=== PATIENT | female | born 1950 | race Two or more races ===

== ENCOUNTER 2025-07-02 11:35 | Emergency (ER) | payer OTHER, SELFPAY ==
[2025-07-02 12:00] VITALS: BP 124/66; PULSE 81; RESP 20; TEMP 37; O2SAT 98; BMI 21.5
--- NOTE | 2025-07-02 12:00 | ED_ITS ---
HPI - General Adult General Chief complaint: Wound/Laceration Stated complaint: l middle finger laceration Time Seen by Provider: 07/02/25 14:18 Source: patient and other (patient's DEHYDRATING PRESS OPERATOR) Mode of arrival: ambulatory Limitations: no limitations History of Present Illness ED Provider: Allie Oakley PA-C HPI narrative: Patient is a 74 year old assigned female at with a history of Xarelto use presenting to the emergency department today with a left middle finger laceration. Patient states that she was opening a can when she cut her left middle finger. Patient denies any other complaints at this time. Related Data Previous Rx's ?Medication ?Instructions ?Recorded amoxicillin 875 mg-potassium 1 tab PO BID 5 days #10 t abs 07/02/25 clavulanate 125 mg tablet Allergies Allergy/AdvReac Type Severity Reaction Status Date / Time aspirin Allergy Rash Verified 07/02/25 12:03 Review of Systems 2 Constitutional: Constitutional: Reports as per HPI Eyes: Eyes: Reports as per HPI ENT: Reports as per HPI Cardiovascular: Cardiovascular: Reports as per HPI Respiratory: Respiratory: Reports as per HPI Gastrointestinal: Gastrointestinal: Reports as per HPI Genitourinary: Genitourinary: Reports as per HPI Musculoskeletal: Musculoskeletal: Reports as per HPI Integumentary/Breasts: Skin/Breast: Reports as per HPI Neurologic: Reports as per HPI Psychiatric: Psychiatric: Reports as per HPI Endocrine: Endocrine: Reports as per HPI Hematologic/Lymphatic: Hematologic/Lymphatic: Reports as per HPI Allergic/Immunologic: Allergic/Immunologic: Reports as per HPI [facility] Past Medical History Attestation statement: The following information was validated with the patient. (all information validated with the patient's DEHYDRATING PRESS OPERATOR) Source: old records reviewed, nursing notes reviewed and other (patient's DEHYDRATING PRESS OPERATOR provided additional history and confirmed the history provided by the patient. ) Social History Social History Advance Directives: No Advance Directives Information Provided: Yes Physical Exam ED Vital Signs: Vital Signs - 24 hr 07/02/25 12:00 07/02/25 15:07 Temperature 98.6 F 98.6 F Pulse Rate 81 81 Respiratory Rate 20 20 Blood Pressure 124/66 124/66 Pulse Oximetry 98 98 Oxygen Delivery Method Room Air Room Air BMI result Body Mass Index 21.5 Const General: cooperative, no acute distress, alert and awake Nutritional Appearance: well nourished Orientation/consciousness: patient oriented x3 HENMT Head: Yes normal to inspection and Yes atraumatic Ears: hearing grossly normal bilaterally and external ears normal General nose exam: Normal external nose present, no nasal discharge noted and no epistaxis Face and sinus: Yes normal facial exam, No abrasion and No laceration Mouth: Normal oral and palatal mucosa present, no drooling and no muffled voice Eyes General: appearance normal, both eyes and all related structures Periorbital: periorbital findings normal Eyelids: Yes eyelids normal Conjunctivae: conjunctivae normal Pupils: Equal, round and reactive pupils present EOM: EOMs intact bilaterally Neck Neck: Yes normal visual inspection and Yes full ROM Resp Effort & Inspection: normal respiratory effort and able to speak in complete sentences Neuro General: patient oriented x3, moves all extremities and CN's II-XI intact bilaterally Cranial nerves: Yes Equal, round and reactive pupils present Cognition (Neuro): normal cognition Extrem Other: General: Yes full ROM and Yes capillary refill normal Psych Appearance: grossly normal Mental Status: mental status grossly normal Affect: normal affect Attitude: cooperative Thought process: Normal thought process present Thought content: Normal thought content present Insight: Good insight present (Psych) Course Course Course Narrative: This is a rapid medical exam performed by Gatito Stone NP: Additional HPI, ROS, PE not included below will be deferred to primary provider. Patient is a 74 y/o F pmhx DM, on Xarelto presenting with laceration to left middle finger. Cut accidentally this morning while opening a can. Unsure last Tdap. Linear lac to distal tip of finger not actively bleeding. Plan: Tdap, sutures Medications Administered Discontinued Medications Generic Name Dose Route Start Last Admin Trade Name Freq PRN Reason Stop Dose Admin Diphtheria/Tetanus/Acell Pertussis 0.5 ml 07/02/25 12:03 07/02/25 14:48 Diphth,Pertus(Acell),Tet Adult 0.5 Ml Syringe IM 07/02/25 12:04 0.5 ml .ONCE ONE Administration Procedures Laceration Left middle finger: Site: other (middle finger) Side (If applicable): left Size (cm): 1.5 Description: linear Depth: simple, single layer Pre-repair: irrigated extensively and deep structures intact Skin layer closed with: other (dermabond) Size (cm): other (dermabond) Technique: other (dermabond) Medical Decision Making Medical Decision Making MDM Narrative: Patient is a 74 year old assigned female at with a history of Xarelto use presenting to the emergency department today with a left middle finger laceration. Patient's physical exam was as noted in the physical exam portion of this note. Patient has a superficial 1.5cm laceration to the left distal middle finger with no active bleeding. I explained my physical exam findings to the patient and the patient's DEHYDRATING PRESS OPERATOR. I answered all questions asked by the patient and the patient's DEHYDRATING PRESS OPERATOR. Patient's laceration was repaired, with dermabond, without incident. Patient's PMS was intact prior to and after dermabond placement. Patient's repaired wound was dressed with a non-stick and web roll gauze, without incident. Patient's PMS was intact prior to and after dressing placement. Patient was brought up to date with tetanus. Given the patient's mechanism of injury, prophylactic antibiotic prescribed. I stressed the importance of the patient taking her medication as directed (either prescribed or as the over the counter packaging recommends). I stressed the importance of the patient following up with her primary care provider. I stressed the importance of the patient returning to the emergency department immediately if her symptoms were to worsen or if she were to develop any dizziness, shortness of breath, difficulty breathing, chest pain, blurry vision, loss of vision, nausea, vomiting, abdominal pain, fever, chills, back pain, or any other complaints. Patient and the patient's DEHYDRATING PRESS OPERATOR verbalized agreement and understanding with this treatment plan and discharge. Differential Diagnosis Differential Diagnoses: The differential diagnosis associated with the presentation includes Finger laceration Finger abrasion Admission/Observation Consideration of admission/observation: Escalation of care including admission/observation considered Patient would have been admitted to the hospital had her clinical presentation warranted hospital admission. Independent Historian Clinical information obtained from an independent historian. History obtained from or confirmed by: Other (Patient's DEHYDRATING PRESS OPERATOR provided additional history and confirmed the history provided by the patient. ) Prescription Management I considered prescription management with: Antibiotic (given the patient's mechanism of injury, patient prescribed a prophylactic antibiotic. ) Discharge Plan Discharge Clinical Impression: Laceration Patient Disposition: Home, Self-Care Instructions: Skin Adhesive Care (ED) Additional Instructions: Do NOT get the affected area wet for at LEAST 7 days. Given your mechanism of injury - you have been prescribed a prophylactic antibiotic. Please take this. IF you are prescribed home medications and/or you are taking over the counter medications at home - it is very important you continue to do so as prescribed / directed unless told otherwise. SI le recetan medicamentos y/o est? tomando medicamentos de venta magalie, es muy importante que contin?e haci?ndolo seg?n lo recetado/indicado a menos que le indiquen lo contrario. Follow up with your primary care provider. Return to the emergency department immediately if your symptoms worsen or if you develop any dizziness, shortness of breath, difficulty breathing, chest pain, blurry vision, loss of vision, nausea, vomiting, abdominal pain, fever, chills, back pain, or any other complaints. Yordan?seguimiento?con villagran m?dico de atenci?n primaria. Acuda inmediatamente al servicio de urgencias si екатерина s?ntomas empeoran o si presenta falta de aliento, dificultad para respirar, dolor tor?cico, mareos, aturdimiento, dolor de espalda, dolor abdominal, fiebre, escalofr?os o cualquier otro s?ntoma. If you do not have a primary care provider - call any of the below numbers to establish and follow up with a primary care provider. Si no tiene un proveedor de atenci?n primaria, llame a cualquiera de los n?meros que aparecen a continuaci?n para establecer y hacer seguimiento con un proveedor de atenci?n primaria. [facility] Primary Care ([place]) [phone] [address] [facility], [address] [facility] Primary Care ([address] [place]) [phone], [address] [place], [address] [facility] Primary Care ([address] [place]) [phone] [place] [address], [address] [place], [address] [facility] Primary Care ([place]) [phone] [place] [address], [address] [place], [address] [facility] Family Medicine [phone] [place] [address], [address] Please see the information below about our Patient Portal. If you are not yet enrolled in the [facility] Patient Portal, you will receive an enrollment email invitation following your visit to any [facility] care setting. You may also self-enroll in the Patient Portal by visiting our website: [email or web address] The following information is required to access the Patient Portal: - Your [facility] Medical Record Number - Your personal home email address (must match what is in your electronic medical record, Registration staff can assist with this) - Name - Date of Capabilities of the Patient Portal: - Message some providers - View upcoming appointments - Access your health summary, medical history, and visit history - View current conditions and allergies - View procedure and lab results - View your medications, including guidelines, side effects, and precautions - Complete pre-appointment questionnaires requested by your provider - Ready summary reports of your office visits and procedures To access the Patient Portal Mobile Edy, follow these directions: - Search [employer] in the Edy Store or [employer] Store - Download the Edy - Search for [facility] - Enter your login/password Portal del paciente Si usted no esta inscrito en el portal de pacientes de [facility], recibira silvia invitacion de inscripcion despues de villagran visita al [facility] o al [facility] via correo electronico. Tambien puede inscribirse voluntariamente en el portal de pacientes visitando nuestra pagina web: ti [email or web address] La siguiente informacion sera requerida para acceder al portal: - Villagran juanito de historia medica de [facility] - Villagran direccion de correo electronico personal - Nombre - Fecha de nacimiento Capacidades: Las siguientes capacidades estan disponibles en el portal de pacientes: - Enviar mensajes a algunos doctores - Verificar proximas citas - Acceso a villagran historial de sunil, registro medico e historial de visitas - Janice las condiciones actuales y alergias janice procedimientos y resultados del laboratorio - Janice екатерина medicamentos, incluyendo las pautas - Efectos secundarios y precauciones - Completar o llenar formularios / cuestionarios de - Citas solicitadas por villagran doctor - Leer los resumenes de reportes medicos de екатерина visitas y procedimientos [place] acceder a la aplicacion movil: - Busque [employer] en la Edy Store o [employer] Store - Descargue la aplicacion - [facility] - Ingrese villagran nombre de usuario / Contrasena Prescriptions: New amoxicillin-pot clavulanate 875-125 mg tablet 1 tab PO BID 5 Days Qty: 10 0RF Interventions: ED Discharge Assessment Last Done: 07/02/25 15:07 Discharge Date/Time: 07/02/25 15:11 Print Language: Swedish
[2025-07-02] MEDS: Diphth,Pertus(ACell),Tet Adult 0.5 ML SYRINGE IM (14:48)
[2025-07-02 15:07] VITALS: BP 124/66; PULSE 81; RESP 20; TEMP 37; O2SAT 98
--- OUTSIDE RECORDS SUMMARY | 2025-07-02 15:24 | XMS_ITS | Clinical Summary ---
Author Organization [facility] Address [address] [place] [address] Phone Care Team Providers Care Loom Control Chain Builder Name Role Phone Jarocho Zhang MD Primary Care Provider [phone] Allergies Active Allergy Reactions Criticality Noted Date Comments Aspirin Itching 08/30/2024 Medications No known medications Active Problems No known active problems Medical History Medical History Date Comments Arthritis Diabetes mellitus (CMS/FORMER[facility] V24, CMS/FORMER[facility] V28) Osteoporosis Hypertension HLD (hyperlipidemia) Social History Tobacco Use Types Packs/Day Years Used Date Smoking Tobacco: Former Cigarettes Smokeless Tobacco: Never Tobacco Cessation:Counseling Given: Not Answered Comments Unknown Sex and Gender Information Value Date Recorded Sex Assigned at Not on file Legal Sex Female 5:08 PM EST Gender Identity Not on file Sexual Orientation Not on file Obstetrics History Last Filed Vital Signs Vital Sign Reading Time Taken Comments Blood Pressure 132/68 09/03/2024 3:14 AM EST Pulse 86 09/03/2024 3:14 AM EST Temperature 36.3 C (97.4 F) 09/03/2024 3:14 AM EST Respiratory Rate 18 09/03/2024 3:14 AM EST Oxygen Saturation 99% 09/03/2024 3:14 AM EST Inhaled Oxygen Concentration - - Weight 50.8 kg (112 lb) 09/02/2024 6:27 PM EST Height 149.9 cm (4' 11 ) 09/02/2024 6:27 PM EST Body Mass Index 22.62 09/02/2024 6:27 PM EST Plan of Treatment Upcoming Encounters Date Type Department Care Team (Late st Contact Info) Description 07/20/2025 8:30 AM EDT Consult General Surgery - [address] [place] [address] Yovany Borjas MD [address] [place] [phone] Health Maintenance Due Date Last Done Comments Diabetes: Annual Foot Exam 1960 Diabetes: Annual Retina Eye Exam 1960 Zoster Vaccines (1 of 2) 1998 Cholesterol Screening (Lipid Panel) 09/27/2022 Falls Risk Assessment 09/27/2022 Hepatitis C Screening 09/27/2022 Medicare Annual Wellness Visit 09/27/2022 Osteoporosis Screening (Bone Density Screening) 09/27/2022 Social Influencers of Health Screening 09/27/2022 RSV Immunization Adult Patients (1 - 1-dose 75+ series) 2023 COVID-19 Vaccine ( season) 2024 08/30/2021, 08/06/2021, 03/19/2021, Additional history exists Diabetes: Annual Urine Albumin-Creatinine Ratio (uACR) 08/30/2024 Diabetes: Blood Sugar Control Test (HGBA1C) 08/30/2024 Depression Screening 10/29/2024 Influenza Vaccine (#1) 2025 Diabetes: Annual GFR (Glomerular Filtration Rate) 08/30/2025 08/30/2024 Hypertension/CHF/CAD Annual BMP Blood Test 08/30/2025 08/30/2024 DTaP,Tdap,and Td Vaccines (2 - Td or Tdap) 07/16/2034 07/16/2024 Breast Cancer Screening Discontinued 10/10/2018 Pneumococcal Vaccine: 50+ Years Completed 05/25/2023 HIB Vaccines Aged Out No longer eligi ble based on patient's age to complete this topic HPV Vaccines Aged Out No longer eligi ble based on patient's age to complete this topic Hepatitis A Vaccines Aged Out No long er eligible based on patient's age to complete this topic Hepatitis B Vaccines Aged Out No long er eligible based on patient's age to complete this topic IPV Vaccines Aged Out No longer eligi ble based on patient's age to complete this topic MMR Vaccines Aged Out No longer eligi ble based on patient's age to complete this topic Meningococcal ACWY Vaccine Aged Out N o longer eligible based on patient's age to complete this topic Meningococcal B Vaccine Aged Out No l onger eligible based on patient's age to complete this topic RSV Immunization Patients Under 20 months Aged Out No longer eligible based on patient's age to complete this topic Varicella Vaccines Aged Out No longer eligible based on patient's age to complete this topic Procedures Procedure Name Priority Date/Time Associated Diagnosis Comments BASIC METABOLIC PANEL STAT 08/30/2024 5:45 PM EDT [facility] SCREENING DIGITAL Routine 10/10/2018 3:02 PM EST Encounter for screening mammogram for malignant neoplasm of breast from Last 3 Months or Most Recently Relevant to Health Maintenance Results * (ABNORMAL) Basic metabolic panel (08/30/2024 5:45 PM EDT) Sodium 140 133 - 145 mmol/L LAB CHEMISTRY METHOD 08/30/2024 6:34 PM [facility] Potassium 3.9 3.5 - 5.5 mmol/L LAB CHEMISTRY METHOD 08/30/2024 6:34 PM [facility] Chloride 108 96 - 110 mmol/L LAB CHEMISTRY METHOD 08/30/2024 6:34 PM [facility] CO2 24 21 - 32 mmol/L LAB CHEMISTRY METHOD 08/30/2024 6:34 PM [facility] Anion Gap 8 3 - 11 LAB CHEMISTRY METHOD 08/30/2024 6:34 PM [facility] Glucose 276(H) 70 - 100 mg/dL LAB CHEMISTRY METHOD 08/30/2024 6:34 PM [facility] BUN 26(H) 5 - 25 mg/dL LAB CHEMISTRY METHOD 08/30/2024 6:34 PM [facility] Creatinine 1.36(H) 0.50 - 1.10 mg/dL LAB CHEMISTRY METHOD 08/30/2024 6:34 PM [facility] eGFR 41(L) >=60 mL/min/1. 73m2 LAB CHEMISTRY METHOD 08/30/2024 6:34 PM EDT [facility] Comment:Calculation based on the Chronic Kidney Disease Epidemiology Collaboration (CKD-EPI) equation refit without adjustment for race. BUN/Creatinine Ratio 19.1 LAB CHEMISTRY METHOD 08/30/2024 6:34 PM EDT [facility] Calcium 10.5 8.5 - 10.5 mg/dL LAB CHEMISTRY METHOD 08/30/2024 6:34 PM EDT [facility] Blood Venous blood specimen / Unknown Venipuncture / Unknown 08/30/2024 5:45 PM EDT 08/30/2024 6:01 PM EDT us Iker Viveros DO LAB BLOOD ORDERABLES Final Result [facility] [address] [place] [address], * JESSICA SCREENING DIGITAL (10/10/2018 3:02 PM EST) Anatomical Region Laterality Modality Mammography 10/10/2018 10:0 5 AM EST Narrative 10/10/2018 3:02 PM EST [facility] Diagnostic Imaging Department [address] [place] [address] Patient: STEVENSONKATHY /Age/Sex: 1950 - 67 - F Unit#: [id number] Location/Status: SPDIMAM/REG CLI Mnemonic/Ordering Site: DIGSC/SPMAM Ordering Physician: JAROCHO ZHANG MD Jessica Screening Digital - 10/10/18 - 1046 INDICATION: SCREENING COMPARISON: [facility] mammograms dating back to 02/09/2015 FINDINGS: CC and MLO views of the breasts were obtained, using full field digital mammography with 3D tomosynthesis views in the MLO projection. Computer aided detection with the [employer] 7.2-H was employed. The breasts contain scattered fibroglandular tissues. No suspicious masses, suspicious microcalcifications, or areas of architectural distortion are identified. Partially calcified nodule within the anteromedial right breast is not significantly changed in appearance compared with previous exams. Additional benign-appearing breast calcifications are present bilaterally. There are no secondary signs of breast malignancy. Compared to the prior exam, no adverse interval change. IMPRESSION: No specific mammographic evidence of breast malignancy. Lack of a mammographic finding in the presence of a clinically suspicious palpable abnormality does not preclude the possibility of malignancy or alter the indications for biopsy. BI-RADS - Category 2 - Benign finding 3342F, 7025F Annual screening mammography is recommended. Patient entered into a reminder system with a target date for the next mammogram. [id number] / [id number]) , [id number] Dictating Physician: LETITIA CHRISTIAN MD Electronically Signed by: LETITIA CHRISTIAN MD Dic Date/Time: 10/10/18 2460 Sign date/Time: 10/10/18 1502 Procedure Note Letitia Christian MD - 10/17/2022 [facility] Diagnostic Imaging Department [address] [place] [address] Patient: RONALD STEVENSONES /Age/Sex: 1950 - 67 - F Unit#: [id number] Location/Status: [facility]/REG CLI Mnemonic/Ordering Site: [facility] Ordering Physician: JAROCHO ZHANG MD Jessica Screening Digital - 10/10/18 - 1046 INDICATION: SCREENING COMPARISON: [facility] mammograms dating back to 02/09/2015 FINDINGS: CC and MLO views of the breasts were obtained, using full field digital mammography with 3D tomosynthesis views in the MLO projection. Computeraided detection with the [employer] 7.2-H was employed. The breasts contain scattered fibroglandular tissues. No suspicious masses, suspicious microcalcifications, or areas ofarchitectural distortion are identified. Partially calcified nodule within theanteromedial right breast is not significantly changed in appearance compared withprevious exams. Additional benign-appearing breast calcifications are present bilaterally. There are no secondary signs of breast malignancy. Comparedto the prior exam, no adverse interval change. IMPRESSION: No specific mammographic evidence of breast malignancy. Lack of a mammographic finding in the presence of a clinicallysuspicious palpable abnormality does not preclude the possibility of malignancy oralter the indications for biopsy. BI-RADS - Category 2 - Benign finding 3342F, 7025F Annual screening mammography is recommended. Patient entered into a reminder system with a target date for the next mammogram. [id number] , [id number] Dictating Physician: LETITIA CHRISTIAN MD Electronically Signed by: LETITIA CHRISTIAN MD Dic Date/Time: 10/10/18 8913 Sign date/Time: 10/10/18 4189 Jarocho Zhang MD IMG BI PROCEDURES Final R esult from Last 3 Months or Most Recently Relevant to Health Maintenance Insurance Member Subscriber Plan / Payer (Ef fective 2024-Present) Name:Kathy Stevenson Relation to Subscriber:Self Name:Kathy Stevenson Payer ID:[id number] Group ID:Not on file Type:Not on file [address] [place] [address] Advance Directives Documents on File Type Date Recorded Patient Factory Hand Expl anation Health Care Decision (hx) 11/25/2017 AD PATEL DIRECTIVE Health Care Decision (hx) 11/25/2017 AD PATEL DIRECTIVE Health Care Decision (hx) 11/25/2017 AD PATEL DIRECTIVE Health Care Decision (hx) 11/25/2017 AD PATEL DIRECTIVE Health Care Decision (hx) 11/25/2017 AD PATEL DIRECTIVE Health Care Decision (hx) 11/25/2017 AD PATEL DIRECTIVE Care Teams Loom Control Chain Builder Relationship Specialty Start Date End Date Jarocho Zhang MD [address] [place] [address] PCP - General Internal Medicine 02/21/22
== END 2025-07-02 15:11 | disposition home or self-care (01) ==
PROVIDERS: Emergency Provider Emergency Medicine
DX: S61.213A Laceration without foreign body of left middle finger without damage to nail, initial encounter (principal); M79.642 Pain in left hand; W26.8XXA Contact with other sharp object(s), not elsewhere classified, initial encounter; Y93.9 Activity, unspecified; Y92.9 Unspecified place or not applicable; Y99.8 Other external cause status
CPT/HCPCS: 12041; 90471; 90715; 99283; 99284